=== PATIENT | male | born 1995 | race Caucasian/White ===

== ENCOUNTER 2018-03-24 18:54 | Emergency (ER) | payer OTHER, SELFPAY ==
[2018-03-24] MEDS ORDERED: METHYLPREDNISOLONE 125 MG INJ ONE (19:36)
--- NOTE | 2018-03-24 20:12 | EDPHYS ---
Physician Documentation [facility] Name: Tony Holcomb Age: 23 yrs Sex: Male : 1995 Arrival Date: 03/24/2018 Time: 18:59 Bed 16 Private MD: None, None ED Physician Vinnie Kolb HPI: 03/24 20:06 This 23 yrs old Male presents to ER via Ambulatory with complaints of Sore pm1 Throat. 20:06 The patient presents with sore throat. The patient describes throat pain as constant, pm1 raw, scratchy. Onset: The symptoms/episode began/occurred 5 day(s) ago. Severity of symptoms: in the emergency department the symptoms are actually worse. Modifying factors: the symptoms are aggravated by fluids, foods, swallowing, Patient's oral intake status: good unaware of sick contact. Associated signs and symptoms: Pertinent negatives chest pain, chills, cough, dysphagia, earache, fever, flu-like symptoms, headache. The patient has not experienced similar symptoms in the past. The patient has not recently seen a physician. Historical: - Allergies: 19:04 No Known Allergies; aa5 - Home Meds: 19:04 None [Active]; aa5 - PMHx: 19:04 None; aa5 - PSHx: 19:04 None; aa5 - Immunization history:: Flu vaccine status is unknown. - Social history:: Smoking status: Patient uses tobacco products, smokes one-half pack cigarettes per day. - Ebola Screening: : No symptoms or risks identified at this time. ROS: 20:06 Constitutional: Negative for fever, chills, and weight loss, Eyes: Negative for injury, pm1 pain, redness, and discharge. 20:06 Neck: Negative for injury, pain, and swelling, Cardiovascular: Negative for chest pain, palpitations, and edema, Respiratory: Negative for shortness of breath, cough, wheezing, and pleuritic chest pain, Abdomen/GI: Negative for abdominal pain, nausea, vomiting, diarrhea, and constipation, Back: Negative for injury and pain, : Negative for injury, bleeding, discharge, and swelling, MS/Extremity: Negative for injury and deformity, Skin: Negative for injury, rash, and discoloration, Neuro: Negative for headache, weakness, numbness, tingling, and seizure. 20:06 ENT: Positive for sore throat, Negative for drainage from ear(s), ear pain, difficulty swallowing, difficulty handling secretions, hoarseness. Exam: 20:06 Constitutional: This is a well developed, well nourished patient who is awake, alert, pm1 and in no acute distress. Head/Face: Normocephalic, atraumatic. Eyes: Pupils equal round and reactive to light, extra-ocular motions intact. Lids and lashes normal. Conjunctiva and sclera are non-icteric and not injected. Cornea within normal limits. Periorbital areas with no swelling, redness, or edema. 20:06 Neck: Trachea midline, no thyromegaly or masses palpated, and no cervical lymphadenopathy. Supple, full range of motion without nuchal rigidity, or vertebral point tenderness. No Meningismus. Chest/axilla: Normal chest wall appearance and motion. Nontender with no deformity. No lesions are appreciated. Cardiovascular: Regular rate and rhythm with a normal S1 and S2. No gallops, murmurs, or rubs. Normal PMI, no JVD. No pulse deficits. Respiratory: Lungs have equal breath sounds bilaterally, clear to auscultation and percussion. No rales, rhonchi or wheezes noted. No increased work of breathing, no retractions or nasal flaring. Abdomen/GI: Soft, non-tender, with normal bowel sounds. No distension or tympany. No guarding or rebound. No evidence of tenderness throughout. Back: No spinal tenderness. No costovertebral tenderness. Full range of motion. Skin: Warm, dry with normal turgor. Normal color with no rashes, no lesions, and no evidence of cellulitis. MS/ Extremity: Pulses equal, no cyanosis. Neurovascular intact. Full, normal range of motion. 20:06 ENT: External ear(s): are unremarkable, Ear canal(s): are normal, TM's: are normal, Nose: is normal, Mouth: is normal, Posterior pharynx: Airway: normal, no evidence of obstruction, patent, Tonsils: bilaterally enlarged, with erythema, with exudate, no ulcerations, peritonsillar mass, is not appreciated, pooling of secretions, is not appreciated. 20:06 Neuro: Orientation: is normal, Motor: is normal, moves all fours, Gait: is steady, at a normal pace, without difficulty. Vital Signs: 19:04 BP 139 / 69; Pulse 82; Resp 18 S; Temp 98.9(O); Pulse Ox 100% on R/A; Weight 108.86 kg aa5 (R); Height 6 ft. 1 in. (185.42 cm) (R); Pain 10/10; 20:15 BP 128 / 65; Pulse 86; Resp 16; Pulse Ox 99% on R/A; jb4 19:04 Body Mass Index 31.66 (108.86 kg, 185.42 cm) aa5 MDM: 19:15 Patient medically screened. pm1 20:06 Data reviewed: vital signs. Data interpreted: Pulse oximetry: on room air is 100 %. pm1 Interpretation: normal. Counseling: I had a detailed discussion with the patient and/or guardian regarding: the historical points, exam findings, and any diagnostic results supporting the discharge/admit diagnosis, lab results, the need for outpatient follow up, to return to the emergency department if symptoms worsen or persist or if there are any questions or concerns that arise at home. 03/24 19:15 Order name: Strep; Complete Time: 20:06 pm1 03/24 19:15 Order name: Flu; Complete Time: 20:17 pm1 Administered Medications: 19:32 Drug: SOLU-Medrol 125 mg Route: IM; Site: right gluteus; [facility] 20:32 Follow up: Response: No adverse reaction jb4 Disposition: 03/24/18 20:12 Discharged to Home. Impression: Streptococcal pharyngitis. - Condition is Stable. - Discharge Instructions: Strep Throat. - Prescriptions for Amoxicillin 500 mg Oral Capsule - take 1 capsule by ORAL route every 8 hours for 10 days; 30 tablet. - Medication Reconciliation Form, Thank You Letter, Antibiotic Education form. - Follow up: Emergency Department; When: As needed; Reason: Worsening of condition. Follow up: Private Physician; When: 2 - 3 days; Reason: Recheck today's complaints, Continuance of care, Re-evaluation by your physician. - Problem is new. - Symptoms have improved. Addendum: 03/27/2018 07:14 Co-signature as Attending Physician, Vinine Kolb MD. r n Signatures: Dispatcher [employer] EDMS Vinnie Kolb MD MD rn Calderon, Audri, RN RN aa5 Jayro Grossman ENGINEER INTERN ENGINEER INTERN pm1 Juaquin Grayson RN RN jb4 Corrections: (The following items were deleted from the chart) 03/24 19:56 19:51 Throat Culture ordered. EDMS EDMS 20:33 20:12 03/24/2018 20:12 Discharged to Home. Impression: Streptococcal pharyngitis. jb4 Condition is Stable. Forms are Medication Reconciliation Form, Thank You Letter, Antibiotic Education, Prescription Opioid Use. Follow up: Emergency Department; When: As needed; Reason: Worsening of condition. Follow up: Private Physician; When: 2 - 3 days; Reason: Recheck today's complaints, Continuance of care, Re-evaluation by your physician. Problem is new. Symptoms have improved. pm1
--- NOTE | 2018-03-24 20:12 | ER ---
Nurse's Notes [facility] Name: Tony Holcomb Age: 23 yrs Sex: Male : 1995 Arrival Date: 03/24/2018 Time: 18:59 Bed 16 Private MD: None, None Diagnosis: Streptococcal pharyngitis Presentation: 03/24 19:03 Presenting complaint: Patient states: sore throat that began Thursday. Transition of aa5 care: patient was not received from another setting of care. Onset of symptoms was March 2018. Risk Assessment: Do you want to hurt yourself or someone else? Patient reports no desire to harm self or others. Initial Sepsis Screen: Does the patient meet any 2 criteria? No. Patient's initial sepsis screen is negative. Does the patient have a suspected source of infection? No. Patient's initial sepsis screen is negative. Care prior to arrival: None. 19:03 Method Of Arrival: Ambulatory aa5 19:03 Acuity: JEFRY 4 aa5 Historical: - Allergies: 19:04 No Known Allergies; aa5 - Home Meds: 19:04 None [Active]; aa5 - PMHx: 19:04 None; aa5 - PSHx: 19:04 None; aa5 - Immunization history:: Flu vaccine status is unknown. - Social history:: Smoking status: Patient uses tobacco products, smokes one-half pack cigarettes per day. - Ebola Screening: : No symptoms or risks identified at this time. Screenin:15 Abuse screen: Denies threats or abuse. Nutritional screening: No deficits noted. jb4 Tuberculosis screening: No symptoms or risk factors identified. Fall Risk None identified. Assessment: 19:15 General: Appears in no apparent distress. comfortable, Behavior is calm, cooperative, jb4 appropriate for age, Golf ball size lump noted to the left of the throat. Provider notified.. Pain: Complains of pain in Throat. Pain does not radiate. Pain currently is 4 out of 10 on a pain scale. Neuro: Level of Consciousness is awake, alert, obeys commands, Oriented to person, place, time, situation. Cardiovascular: Patient's skin is warm and dry. Respiratory: Airway is patent Respiratory effort is even, unlabored, Respiratory pattern is regular, symmetrical, Breath sounds are clear bilaterally. GI: No signs and/or symptoms were reported involving the gastrointestinal system. : No signs and/or symptoms were reported regarding the genitourinary system. EENT: Throat is reddened has patchy exudate has enlarged tonsils bilaterally. Derm: Skin is intact, Skin is dry, Skin is normal, Skin temperature is warm. Musculoskeletal: Circulation, motion, and sensation intact. 20:16 Reassessment: Patient appears in no apparent distress at this time. Patient and/or jb4 family updated on plan of care and expected duration. Pain level reassessed. Patient is alert, oriented x 3, equal unlabored respirations, skin warm/dry/pink. Vital Signs: 19:04 BP 139 / 69; Pulse 82; Resp 18 S; Temp 98.9(O); Pulse Ox 100% on R/A; Weight 108.86 kg aa5 (R); Height 6 ft. 1 in. (185.42 cm) (R); Pain 10/10; 20:15 BP 128 / 65; Pulse 86; Resp 16; Pulse Ox 99% on R/A; jb4 19:04 Body Mass Index 31.66 (108.86 kg, 185.42 cm) aa5 ED Course: 18:59 Patient arrived in ED. dl4 18:59 None, None is Private Physician. dl4 19:03 Triage completed. aa5 19:04 Arm band placed on. aa5 19:12 Jayro Grossman NP is PHCP. pm1 19:12 Vinnie Kolb MD is Attending Physician. pm1 19:12 Juaquin Grayson, RN is Primary Nurse. jb4 19:15 Patient has correct armband on for positive identification. Bed in low position. Call jb4 light in reach. Side rails up X 1. Pulse ox on. NIBP on. 19:27 Flu Sent. jb4 19:28 Strep Sent. jb4 20:32 No provider procedures requiring assistance completed. Patient did not have IV access jb4 during this emergency room visit. Administered Medications: 19:32 Drug: SOLU-Medrol 125 mg Route: IM; Site: right gluteus; jb4 20:32 Follow up: Response: No adverse reaction jb4 Outcome: 20:12 Discharge ordered by . pm1 20:32 Discharged to home ambulatory. jb4 20:32 Condition: stable 20:32 Discharge instructions given to patient, Instructed on discharge instructions, follow up and referral plans. medication usage, Demonstrated understanding of instructions, follow-up care, medications, Prescriptions given X 1. 20:33 Patient left the ED. jb4 Signatures: Caty Price RN RN aa5 Jayro Grossman NP PLASTIC BOAT PATCHER pm1 Juaquin Grayson RN RN jb4 Ye Negron dl4 Corrections: (The following items were deleted from the chart) 19:06 19:04 Pulse 82bpm; Resp 18bpm; Spontaneous; Pulse Ox 100% RA; Temp 98.9F Oral; 108.86 aa5 kg Reported; Height 6 ft. 1 in. Reported; BMI: 31.6; Pain 10/10; aa5 20:33 19:15 General: Appears in no apparent distress. comfortable, Golf ball size lump noted jb4 to the left of the throat. Provider notified.. jb4
== END 2018-03-24 20:33 | disposition home or self-care (01) ==
LOC: ER 18:54
DX: J02.0 Streptococcal pharyngitis (principal); F17.210 Nicotine dependence, cigarettes, uncomplicated
CPT/HCPCS: 87081; 87804; 96372; 99284; J2930

== ENCOUNTER 2021-03-16 08:17 | Emergency (ER) | payer OTHER ==
[2021-03-16 09:35] LABS: SARS-COV-2 RT PCR NEGATIVE (NEGATIVE)
--- NOTE | 2021-03-16 09:45 | ER ---
Nurse's Notes [facility] Name: Tony Holcomb Age: 26 yrs Sex: Male : 1995 Arrival Date: 03/16/2021 Time: 08:21 Bed 10 Private MD: Diagnosis: Streptococcal pharyngitis Presentation: 03/16 08:23 Chief complaint: Patient states: my tonsils have been swollen for 3 days. i thought it tw2 was a normal cold and i was taking medicine and usually it goes away. so i might have strep throat. and i am congested. Coronavirus screen: congestion, cough unrelated to allergies, headache, runny nose, sore throat, Client presents with at least one sign or symptom that may indicate coronavirus-19. Standard/surgical mask placed on the client. Provider contacted for isolation considerations. Ebola Screen: Patient denies exposure to infectious person. Patient denies travel to an Ebola-affected area in the 21 days before illness onset. Initial Sepsis Screen: Does the patient meet any 2 criteria? No. Patient's initial sepsis screen is negative. Does the patient have a suspected source of infection? No. Patient's initial sepsis screen is negative. Risk Assessment: Do you want to hurt yourself or someone else? Patient reports no desire to harm self or others. Onset of symptoms was March 16, 2021. 08:23 Method Of Arrival: Ambulatory tw2 08:23 Acuity: JEFRY 4 tw2 Triage Assessment: 08:26 General: Appears in no apparent distress. well groomed, Behavior is calm, cooperative, tw2 appropriate for age. Pain: Complains of pain in uvula, left aspect of posterior pharynx and right aspect of posterior pharynx. EENT: Reports nasal congestion nasal discharge. Historical: - Allergies: 08:25 No Known Allergies; tw2 - Home Meds: 08:25 None [Active]; tw2 - PMHx: 08:25 ADD/ADHD; tw2 - Immunization history:: Client reports having NOT received the Covid vaccine. Flu vaccine is not up to date. - Social history:: Smoking status: Reported history of juuling and/or vaping. Patient uses alcohol, occasionally. street drugs, marijuana, "every now and then". Screenin:35 Abuse screen: Denies threats or abuse. Nutritional screening: No deficits noted. tw2 Tuberculosis screening: No symptoms or risk factors identified. Fall Risk None identified. Assessment: 08:35 General: Appears in no apparent distress. well groomed, Behavior is calm, cooperative, tw2 appropriate for age. Pain:. Neuro: Level of Consciousness is awake, alert, obeys commands, Oriented to person, place, time, situation. Cardiovascular: Patient's skin is warm and dry. Respiratory: Airway is patent Respiratory effort is even, unlabored, Respiratory pattern is regular, symmetrical, n/a. EENT: Throat is reddened with gag reflex present, Reports nasal congestion nasal discharge pain when swallowing. 09:58 Reassessment: Patient appears in no apparent distress at this time. No changes from tw2 previously documented assessment. Patient and/or family updated on plan of care and expected duration. Pain level reassessed. Patient is alert, oriented x 3, equal unlabored respirations, skin warm/dry/pink. Vital Signs: 08:23 BP 158 / 81; Pulse 80; Resp 17; Temp 97.7(TE); Pulse Ox 100% on R/A; Weight 102.51 kg tw2 (R); Height 6 ft. 1 in. (185.42 cm); Pain 7/10; 09:58 BP 139 / 64; Pulse 86; Resp 17; Pulse Ox 100% on R/A; tw2 08:23 Body Mass Index 29.82 (102.51 kg, 185.42 cm) tw2 08:23 "when swallowing" tw2 ED Course: 08:21 Patient arrived in ED. mr 08:25 Triage completed. tw2 08:26 Arm band placed on. tw2 08:28 [facility] pm1 08:28 Francesco Benitez MD is Attending Physician. pm1 08:28 Bed in low position. Call light in reach. tw2 08:35 Aline Martinez, LAKSHMI is Primary Nurse. tw2 08:35 Strep Sent. tw2 08:35 COVID-19/FLU A+B Sent. tw2 09:59 Awaiting: observation after IM abx injection prior to discharge. tw2 09:59 No provider procedures requiring assistance completed. Patient did not have IV access tw2 during this emergency room visit. Administered Medications: 09:58 Drug: penicillin G Benzathine 1.2 million units Route: IM; Site: left gluteus; tw2 Outcome: 09:44 Discharge ordered by . pm1 10:09 Discharged to home ambulatory. ab2 10:09 Condition: good 10:09 Discharge instructions given to patient. 10:10 Patient left the ED. ab2 Signatures: Kim Young NgocJayro, TECHNICAL SERVICES COORDINATOR TECHNICAL SERVICES COORDINATOR pm1 Aline Martinez RN RN tw2 Harpreet Ibarra ab2
--- NOTE | 2021-03-16 09:45 | EDPHYS ---
Physician Documentation [facility] Name: Tony Holcomb Age: 26 yrs Sex: Male : 1995 Arrival Date: 03/16/2021 Time: 08:21 Bed 10 Private MD: ED Physician Francesco Benitez HPI: 03/16 08:49 This 26 yrs old Black Male presents to ER via Ambulatory with complaints of Sore Throat.pm1 08:49 The patient presents with sore throat. The patient describes throat pain as raw, pm1 scratchy. Onset: The symptoms/episode began/occurred 3 day(s) ago. Severity of symptoms: in the emergency department the symptoms are unchanged. Modifying factors: The symptoms are alleviated by nothing, the symptoms are aggravated by swallowing, Patient's oral intake status: good unaware of sick contact. Associated signs and symptoms: Pertinent positives: earache, Pertinent negatives cough, fever. The patient has experienced similar episodes in the past, a few times. The patient has not recently seen a physician. Historical: - Allergies: 08:25 No Known Allergies; tw2 - Home Meds: 08:25 None [Active]; tw2 - PMHx: 08:25 ADD/ADHD; tw2 - Immunization history:: Client reports having NOT received the Covid vaccine. Flu vaccine is not up to date. - Social history:: Smoking status: Reported history of juuling and/or vaping. Patient uses alcohol, occasionally. street drugs, marijuana, "every now and then". ROS: 08:49 Constitutional: Negative for fever, chills, and weight loss. pm1 08:49 Cardiovascular: Negative for chest pain, palpitations, and edema, Respiratory: Negative for shortness of breath, cough, wheezing, and pleuritic chest pain, Abdomen/GI: Negative for abdominal pain, nausea, vomiting, diarrhea, and constipation, MS/Extremity: Negative for injury and deformity, Skin: Negative for injury, rash, and discoloration, Neuro: Negative for headache, weakness, numbness, tingling, and seizure. 08:49 ENT: Positive for ear pain, sore throat. 08:49 All other systems are negative. Exam: 08:49 Constitutional: This is a well developed, well nourished patient who is awake, alert, pm1 and in no acute distress. Head/Face: Normocephalic, atraumatic. 08:49 Skin: Warm, dry with normal turgor. Normal color with no rashes, no lesions, and no evidence of cellulitis. MS/ Extremity: Pulses equal, no cyanosis. Neurovascular intact. Full, normal range of motion. 08:49 ENT: Mouth: no acute changes, Lips: normal, moist, Oral mucosa: normal, pink and intact, moist, Posterior pharynx: Airway: no evidence of obstruction, Tonsils: bilaterally enlarged, with erythema, no exudate, no ulcerations, peritonsillar mass, is not appreciated. 08:49 Cardiovascular: Exam negative for acute changes, Rate: normal, Rhythm: regular, Pulses: no pulse deficits are appreciated. 08:49 Respiratory: Exam negative for acute changes, respiratory distress, shortness of breath, Breath sounds: are clear throughout. 08:49 Neuro: Exam negative for acute changes, Orientation: is normal, Mentation: is normal, Motor: is normal, moves all fours, Gait: is steady, at a normal pace, without difficulty. Vital Signs: 08:23 BP 158 / 81; Pulse 80; Resp 17; Temp 97.7(TE); Pulse Ox 100% on R/A; Weight 102.51 kg tw2 (R); Height 6 ft. 1 in. (185.42 cm); Pain 7/10; 09:58 BP 139 / 64; Pulse 86; Resp 17; Pulse Ox 100% on R/A; tw2 08:23 Body Mass Index 29.82 (102.51 kg, 185.42 cm) tw2 08:23 "when swallowing" tw2 MDM: 08:29 Patient medically screened. pm1 09:44 Data reviewed: vital signs. Data interpreted: Pulse oximetry: on room air is 100 %. pm1 Interpretation: normal. Counseling: I had a detailed discussion with the patient and/or guardian regarding: the historical points, exam findings, and any diagnostic results supporting the discharge/admit diagnosis, lab results, the need for outpatient follow up, to return to the emergency department if symptoms worsen or persist or if there are any questions or concerns that arise at home. 09:50 ED course: Patient with preference for Bicillin LA versus antibiotics PO. pm1 03/16 08:29 Order name: Strep pm1 03/16 08:29 Order name: COVID-19/FLU A+B (Document "Date of Onset" if Symptomatic) pm1 03/16 08:29 Order name: Group A Streptococcus Rapid Sc; Complete Time: 08:49 EDMS 03/16 08:29 Order name: COVID-19/FLU A+B; Complete Time: 09:40 EDMS Administered Medications: 09:58 Drug: penicillin G Benzathine 1.2 million units Route: IM; Site: left gluteus; tw2 Disposition Summary: 03/16/21 09:44 Discharge Ordered Location: Home pm1 Problem: new pm1 Symptoms: have improved pm1 Condition: Stable pm1 Diagnosis - Streptococcal pharyngitis pm1 Followup: pm1 - With: Emergency Department - When: As needed - Reason: Worsening of condition Followup: pm1 - With: Private Physician - When: 2 - 3 days - Reason: Recheck today's complaints, Continuance of care, Re-evaluation by your physician Discharge Instructions: - Discharge Summary Sheet pm1 - Strep Throat, Adult pm1 Forms: - Medication Reconciliation Form pm1 - Thank You Letter pm1 - Antibiotic Education pm1 - Prescription Opioid Use pm1 - Work release form eb Addendum: 03/17/2021 18:40 Co-signature as Attending Physician, Francesco Benitez MD I agree with the assessment and c arredondo plan of care. Signatures: Dispatcher [employer] EDFrancesco Lu MD MD cha Marinas, Patrick, CONCRETE INSPECTOR CONCRETE INSPECTOR pm1 Aline Martinez, RN RN tw2
[2021-03-16] MEDS ORDERED: PEN G BENZ LA 1.2MU/2ML SYRINGE IM ONE (09:53)
[2021-03-16 10:17] VITALS: TEMP 97.7; O2SAT 100
[2021-03-16 10:19] VITALS: BP 139/64
== END 2021-03-16 10:10 | disposition home or self-care (01) ==
LOC: ER 08:17
DX: J02.0 Streptococcal pharyngitis (principal); Z20.822 Contact with and (suspected) exposure to COVID-19
CPT/HCPCS: 87081; 0240U; 96372; 99283; J0561

== ENCOUNTER 2022-03-24 15:46 | Emergency (ER) | payer OTHER ==
--- NOTE | 2022-03-24 16:38 | RAD REPORT ---
EXAM DESCRIPTION: RAD - Chest Pa And Lat (2 Views) - 03/24/2022 4:23 pm CLINICAL HISTORY: CHEST PAIN COMPARISON: None TECHNIQUE: Frontal and lateral views of the chest were obtained. FINDINGS: The lungs are clear. Heart size is normal and central vasculature is within normal limit s. No pleural effusion or pneumothorax seen. No acute bony finding noted. No aortic abnormality. IMPRESSION: No acute cardiopulmonary process.
[2022-03-24] MEDS ORDERED: IBUPROFEN 200 MG TAB PO ONE (16:49)
--- NOTE | 2022-03-24 16:56 | EDPHYS ---
Physician Documentation [facility] Name: Tony Holcomb Age: 27 yrs Sex: Male : 1995 Arrival Date: 03/24/2022 Time: 15:48 Bed DIS4 Private MD: ED Physician Galen Godoy HPI: 03/24 18:30 This 27 yrs old Black Male presents to ER via Ambulatory with complaints of Chest Pain. ms3 18:30 27-year-old male with past medical history of ADD/ADHD presents for chest pain that is ms3 been ongoing for 2 days. Patient states the pain is rated a 3/10 and described as pounding. patient endorses mild shortness of breath. Patient denies sweating, nausea or vomiting. Patient states he does not have a history of sudden cardiac in his family.. Historical: - Allergies: 16:12 No Known Allergies; ss - Home Meds: 16:12 None [Active]; ss - PMHx: 16:12 ADD/ADHD; ss - PSHx: 16:12 None; ss - Immunization history:: Client reports receiving the 2nd dose of the Covid vaccine. - Social history:: Smoking status: Patient reports the use of cigarette tobacco products, denies chronic smoking, but will smoke occasionally, Reported history of juuling and/or vaping. ROS: 18:30 Constitutional: Negative for fever, and chills. Neck: Negative for injury, pain, and ms3 swelling, Cardiovascular: Negative for chest pain, and palpitations. Respiratory: Negative for shortness of breath, cough, wheezing, and pleuritic chest pain, Abdomen/GI: Negative for abdominal pain, nausea, vomiting, diarrhea, and constipation, MS/Extremity: Negative for injury and deformity, Skin: Negative for injury, rash, and discoloration. 18:30 All other systems are negative. Exam: 16:46 ECG was reviewed by the Attending Physician. ms3 18:30 Constitutional: This is a well developed, well nourished patient who is awake, alert, ms3 and in no acute distress. Head/Face: Normocephalic, atraumatic. Neck: Trachea midline, no cervical lymphadenopathy. Supple, full range of motion without nuchal rigidity, or vertebral point tenderness. No Meningismus. Chest/axilla: Normal chest wall appearance and motion. Nontender with no deformity. Cardiovascular: Regular rate and rhythm with a normal S1 and S2. No gallops, murmurs, or rubs. Normal PMI, no JVD. No pulse deficits. Respiratory: Lungs have equal breath sounds bilaterally, clear to auscultation and percussion. No rales, rhonchi or wheezes noted. No increased work of breathing, no retractions or nasal flaring. Abdomen/GI: Soft, non-tender, with normal bowel sounds. No distension or tympany. No guarding or rebound. No evidence of tenderness throughout. Skin: Warm, dry with normal turgor. Normal color with no rashes, no lesions, and no evidence of cellulitis. MS/ Extremity: Pulses equal, no cyanosis. Neurovascular intact. Full, normal range of motion. Vital Signs: 16:11 BP 155 / 86; Pulse 57; Resp 16; Temp 98.2(TE); Pulse Ox 100% on R/A; Weight 104.33 kg; ss Height 6 ft. 0 in. (182.88 cm); Pain 4/10; 16:11 Body Mass Index 31.19 (104.33 kg, 182.88 cm) ss MDM: 16:08 Patient medically screened. ms3 18:30 Differential diagnosis: abnormal EKG, acute myocardial infarction, chest wall pain. ms3 HEART Score: History: Slightly Suspicious (0), ECG: Normal (0), Age: < or = 45 years (0), Risk Factors: No Risk Factors Known (0). Data reviewed: vital signs, nurses notes, and as a result, I will discharge patient. Consideration of Admission/Observation Escalation of care including admission/observation considered. No emergent medical condition necessitating admission found at this time. Independent interpretation of the following test(s) in the Emergency Department EKG: See my EKG interpretation above. Test considered but Not performed: Labs: . 03/24 16:09 Order name: Chest Pa And Lat (2 Views) XRAY; Complete Time: 16:52 ms3 03/24 16:09 Order name: EKG; Complete Time: 16:09 ms3 03/24 16:09 Order name: EKG - Nurse/Tech; Complete Time: 16:45 ms3 EC:46 Rate is 56 beats/min. Rhythm is regular. QRS [place] is Normal. [place] interval is normal. QRS ms3 interval is normal. Clinical impression: Sinus bradycardia. Interpreted by me. Reviewed by me. Administered Medications: 16:47 Drug: Ibuprofen 600 mg Route: PO; ss Disposition Summary: 03/24/22 16:56 Discharge Ordered Location: Home ms3 Condition: Stable ms3 Diagnosis - Chest pain, unspecified ms3 - Elevated blood-pressure reading, without diagnosis of hypertension ms3 Followup: ms3 - With: Terrell Paz, DO - When: 2 - 3 days - Reason: Recheck today's complaints Discharge Instructions: - Discharge Summary Sheet ms3 - Nonspecific Chest Pain, Adult ms3 Forms: - Medication Reconciliation Form ms3 - Thank You Letter ms3 - Antibiotic Education ms3 - Work release form iw - Prescription Opioid Use ms3 Signatures: Dispatcher [employer] Candace Bautista, RN RN ss Galen Godoy DO DO ms3
--- NOTE | 2022-03-24 16:56 | ER ---
Nurse's Notes [facility] Name: Tony Holcomb Age: 27 yrs Sex: Male : 1995 Arrival Date: 03/24/2022 Time: 15:48 Bed DIS4 Private MD: Diagnosis: Chest pain, unspecified;Elevated blood-pressure reading, without diagnosis of hypertension Presentation: 03/24 16:11 Chief complaint: Patient states: chest pain and palpitations that began 4 days ago. ss Coronavirus screen: Client denies travel out of the [place] in the last 14 days. Ebola Screen: Patient denies exposure to infectious person. Patient denies travel to an Ebola-affected area in the 21 days before illness onset. Initial Sepsis Screen: Does the patient meet any 2 criteria? No. Patient's initial sepsis screen is negative. Does the patient have a suspected source of infection? No. Patient's initial sepsis screen is negative. Risk Assessment: Do you want to hurt yourself or someone else? Patient reports no desire to harm self or others. Onset of symptoms was March 20, 2022. 16:11 Method Of Arrival: Ambulatory ss 16:11 Acuity: JEFRY 3 ss Historical: - Allergies: 16:12 No Known Allergies; ss - Home Meds: 16:12 None [Active]; ss - PMHx: 16:12 ADD/ADHD; ss - PSHx: 16:12 None; ss - Immunization history:: Client reports receiving the 2nd dose of the Covid vaccine. - Social history:: Smoking status: Patient reports the use of cigarette tobacco products, denies chronic smoking, but will smoke occasionally, Reported history of juuling and/or vaping. Screenin:11 [facility] ED Fall Risk Assessment (Adult) History of falling in the last 3 months, ss including since admission No falls in past 3 months (0 pts). Abuse screen: Denies threats or abuse. Denies injuries from another. Nutritional screening: No deficits noted. Tuberculosis screening: Never had TB. Assessment: 16:11 General: Appears in no apparent distress. comfortable, well groomed, well developed, ss well nourished, Behavior is calm, cooperative. Neuro: Level of Consciousness is awake, alert, obeys commands, Oriented to person, place, time, situation. Respiratory: Airway is patent Respiratory effort is even, unlabored, Respiratory pattern is regular, symmetrical. GI: Patient currently denies diarrhea, nausea, vomiting. Vital Signs: 16:11 BP 155 / 86; Pulse 57; Resp 16; Temp 98.2(TE); Pulse Ox 100% on R/A; Weight 104.33 kg; ss Height 6 ft. 0 in. (182.88 cm); Pain 4/10; 16:11 Body Mass Index 31.19 (104.33 kg, 182.88 cm) ED Course: 15:48 Patient arrived in ED. mr 16:02 Galen Godoy DO is Attending Physician. ms3 16:11 Patient has correct armband on for positive identification. ss 16:11 No provider procedures requiring assistance completed. Patient did not have IV access ss during this emergency room visit. Patient maintains SpO2 saturation greater than 95% on room air. 16:12 Triage completed. ss 16:12 Arm band placed on right wrist. ss 16:25 Chest Pa And Lat (2 Views) XRAY In Process Unspecified. EDMS 16:45 Candace Ku, LAKSHMI is Primary Nurse. ss 16:55 Terrell Paz DO is Referral Physician. ms3 Administered Medications: 16:47 Drug: Ibuprofen 600 mg Route: PO; ss Medication: 16:11 VIS not applicable for this client. ss Outcome: 16:56 Discharge ordered by . ms3 17:19 Patient left the ED. iw 17:19 Discharged to home ambulatory. ss 17:19 Condition: good 17:19 Discharge instructions given to patient, Instructed on discharge instructions, follow up and referral plans. Demonstrated understanding of instructions, follow-up care. Signatures: Dispatcher [employer] [facility] YoungKim Irene, RN RN Candace Ku RN RN Galen Godoy DO DO ms3
[2022-03-24 18:14] VITALS: BP 155/86; TEMP 98.2; O2SAT 100
--- NOTE | 2022-03-25 12:27 | EKG ---
Test Date: 2022-03-24 Test Time: 16:46:41 [employer] Work[employer]: CLARI MEASUREMENT RESULTS: Intervals: Rate: 56 GA: 160 QRSD: 104 QT: 400 QTc: 386 [place]: P: 63 GA: 160 QRS: 90 T: 32 INTERPRETIVE STATEMENTS: Sinus bradycardia Rightward axis Borderline ECG Compared to ECG 1995 08:57:00 Right-axis deviation now present Sinus rhythm no longer present Electronically Signed On 03-25-22 12:24:59 [employer] OPERATIONS OFFICER by Merrick Ho
== END 2022-03-24 17:19 | disposition home or self-care (01) ==
LOC: ER 15:46
DX: R07.9 Chest pain, unspecified (principal); R03.0 Elevated blood-pressure reading, without diagnosis of hypertension; F17.210 Nicotine dependence, cigarettes, uncomplicated
CPT/HCPCS: 71046; 93005; 99284